=== PATIENT | female | born 1985 | race Caucasian/White ===

== ENCOUNTER 2020-05-05 17:38 | Emergency (ER) | payer SELFPAY ==
[~2020-05-05] VITALS: Ht 157.5 cm; Wt 78.9 kg
[2020-05-05 17:58] VITALS: Ht 157.5 cm; Wt 78.9 kg
[2020-05-05 20:30] VITALS: BP 114/76
== END 2020-05-05 20:30 | disposition home or self-care (01) ==
LOC: ED 17:38
DX: R51.9 Headache, unspecified (principal); R11.2 Nausea with vomiting, unspecified; R56.9 Unspecified convulsions; Z90.89 Acquired absence of other organs; Z88.6 Allergy status to analgesic agent; Z88.8 Allergy status to other drugs, medicaments and biological substances
CPT/HCPCS: J1200; J1953; J2060; J2270; J2405; Q0162